=== PATIENT | male | born 1945 | race Caucasian/White ===

== ENCOUNTER → 2018-06-03 10:53 | Outpatient (CLI) | payer MEDICARE, SELFPAY ==
[2018-06-03 12:17] LABS: PSA,Total - Annual Screen 0.23 ng/mL (0.00-4.00)
== END ==
PROVIDERS: Family Provider Internal Medicine; PCP Internal Medicine; Visit Provider Urology
DX: Z12.5 Encounter for screening for malignant neoplasm of prostate (principal)
CPT/HCPCS: 36415; 84153; G0103

== ENCOUNTER → 2019-06-12 09:40 | Outpatient (CLI) | payer MEDICARE, SELFPAY ==
[2019-06-12 11:36] LABS: PSA,Total - Annual Screen 0.21 ng/mL (0.00-4.00)
== END ==
PROVIDERS: Family Provider Internal Medicine; PCP Internal Medicine; Visit Provider Nurse Practitioner Adult Health
DX: Z12.5 Encounter for screening for malignant neoplasm of prostate (principal)
CPT/HCPCS: 36415; 84153; G0103

== ENCOUNTER → 2020-06-04 | Outpatient (CLI) | payer MEDICARE, SELFPAY ==
[2020-06-04 10:24] LABS: PSA,Total- Diagnostic 0.13 ng/mL (0.0-4.0)
== END | disposition home or self-care (01) ==
LOC: LAB 09:09
PROVIDERS: PCP Internal Medicine; Visit Provider Nurse Practitioner Adult Health
DX: Z85.46 Personal history of malignant neoplasm of prostate (principal)
CPT/HCPCS: 36415; 84153

== ENCOUNTER → 2023-07-21 | Outpatient (CLI) | payer MEDICARE, SELFPAY ==
--- NOTE | 2023-07-21 | LES_PTH ---
PATIENT: SONIA PAVON LOC: [facility] U#:[id number] AGE/SX: 78/M ROOM: RE07/21/[address]: Dr. Austyn Flores MD : 1945 BED: DIS: 07/21/2023 SPEC #: [id number] RECD: 07/21/23 13:55 STATUS: FRIEDA REDinorah #: [id number] ANUPAM: 07/21/23 00:[address]: Austyn Flores DEPT: SURGICAL PATHOLOGY RECD BY: Manuel Toussaint ENTERED: 07/21/23 13:56 SP TYPE: Lesion OTHR DR: Dr. Lakia Rivera MD Tissues: Skin of eyelid, NOS Procedures: Surgery Specimen Level IV HEADER OPERATION: Lesion excision LLL PRE-OP DIAGNOSIS: Growth of eyelid, increased size with vascularity TISSUE SUBMITTED: Left lower eyelid lesion MICROSCOPIC DIAGNOSIS Left lower eyelid lesion, excision: Cutaneous horn, favor verrucous keratosis with mild atypia. Negative for malignancy. See comment. SJ:marion 07/22/2023 COMMENT The specimen consists of superficial portion of the lesion. Clinical correlation and appropriate follow up are necessary. Case has been reviewed in consultation with Dr. Ramos who concurs with the above diagnosis. IDC:AM MICROSCOPIC DESCRIPTION Slides are reviewed. GROSS DESCRIPTION Received in fixative is one container labeled with the patient's name and designated LLL. The specimen consists of a piece of glover-white skin measuring 0.3 x 0.2 x 0.1 cm. The entire specimen is submitted in one cassette. / SEAN:marion 07/21/2023 TC:5 CPT: [id number]
== END | disposition home or self-care (01) ==
LOC: LABSPEC 10:23
PROVIDERS: PCP Internal Medicine; Referring Provider Ophthalmology; Visit Provider Ophthalmology
DX: L85.8 Other specified epidermal thickening (principal); L57.0 Actinic keratosis
CPT/HCPCS: 88305